=== PATIENT | female | born 1945 ===

== ENCOUNTER 2021-11-19 07:39 | Outpatient (CLI) | payer OTHER | END 2021-11-19 07:40 | disposition home or self-care (01) | LOC: RX STUDY 07:39 | PROVIDERS: ATTEND Otolaryngology Plastic Surgery within the Head & Neck | DX: R13.10 Dysphagia, unspecified (principal) ==

== ENCOUNTER 2021-11-19 11:05 | Outpatient (CLI) | payer OTHER | END 2021-11-19 11:07 | disposition home or self-care (01) | LOC: SONOGRAMA 11:05 | PROVIDERS: ATTEND Pathology Anatomic Pathology | DX: E04.1 Nontoxic single thyroid nodule (principal) ==